=== PATIENT | female | born 1970 | race Caucasian/White ===

== ENCOUNTER 2017-06-17 13:40 | Observation (INO) | payer SELFPAY ==
--- NOTE | 2017-06-17 13:43 | ED Physician Documentation ---
Overdose - HISTORIAN Historian: patient - HPI Stated Complaint: overdose of olanzapine 5 mg tab (unknow amount) Chief Complaint: Overdose Onset: hours ( states he thinks this happned after kid drop off and she stopped responding to him at 10 am ) Duration: sudden onset Intent: accidental (He is not sure why she took extra - he is not sure how many were in the bottle. Meds were filled 30 tabs on 04.08.2017). denies: suicide Situational Problems: No Related To: spouse Further Comments: yes ( states they just returned from vacation and she was not needing meds on vacation and once returning at times she has taken too many due to increased stress of return . He states she has anxiety no sucicial attempt) - Associated Symptoms Symptoms: other (anxiety ) Suicidal: denies: suicidal thoughts Ingestion: accidental Mechanism: overdose - ROS CONST: none - PAST HX Psychiatric problems: other (anxiety ) Lung, Cardiac, DM: other (none ) Surgical History: no surgical history Immunizations: UTD Allergies/Adverse Reactions: Allergies Allergy/AdvReac Type Severity Reaction Status Date / Time sulfamethoxazole Allergy hives Unverified 05/25/14 10:45 [From Bactrim] trimethoprim [From Bactrim] Allergy hives Unverified 05/25/14 10:45 Home Medications: Ambulatory Orders Medication Instructions Recorded Olanzapine [Olanzapine] 5 mg PO DAILY 06/17/17 - Social HX Smoking History: non-smoker Marital Status: Drug Use: none - Family HX Family HX: other (none ) - VITAL SIGNS Vital Signs: Vital Signs Temp Pulse Resp BP Pulse Ox 98 F 62 18 86/60 98 06/17/17 13:40 06/17/17 13:40 06/17/17 13:40 06/17/17 13:40 06/17/17 13:40 - REVIEWED ASSESSMENTS Nursing Assessment Reviewed: Yes Vitals Reviewed: Yes Progress - Progress Progress: 1440: resting in bed. 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 Denies any pain. Easily re settled . Resting after DG 1600: Notified Dr Breann Crain of medication ingestion and remaining refills on prescription. Janey LUQUE took the call and states she will leave the Dr hale message. DG 1615: resting quietly in bed. DG 1655: continues to rest quietly in the room. Family in waiting room DG ED Results Lab/Radiology - Lab Results Lab Results: Lab Results 06/17/17 06/17/17 06/17/17 13:50 13:50 13:50 WBC 5.40 K/ul K/ul (4.00-12.00) RBC 4.35 M/ul M/ul (3.90-5.20) Hgb 13.1 g/dL g/dL (12.0-16.0) Hct 40.4 % % (34.5-46.5) MCV 92.9 fl fl (80.0-100.0) MCH 30.1 pg pg (28.0-34.0) MCHC 32.4 g/dL g/dL (30.0-36.0) RDW 12.4 % % (11.3-14.3) Plt Count 246 K/mm3 K/mm3 (130-400) Neut % (Auto) 80.3 % H % (39.0-79.0) Lymph % (Auto) 11.1 % L % (16.0-50.0) Adams % (Auto) 5.8 % % (0.0-11.0) Eos % (Auto) 0.7 % % (0.0-6.8) Baso % (Auto) 0.8 (0.0-1.5) Neut # (Auto) 4.4 # k/uL # k/uL (1.4-7.7) Lymph # (Auto) 0.6 # k/uL # k/uL (0.6-4.0) Adams # (Auto) 0.3 # k/uL # k/uL (0.0-0.9) Eos # (Auto) 0.0 # k/uL # k/uL (0.0-0.6) Baso # (Auto) 0.0 # k/uL # k/uL (0.0-0.5) Reactive Lymphs % 1.2 % % (0.0-5.0) Reactive Lymphs # 0.1 # k/uL # k/uL (0.0-0.8) Sodium 138 mmol/L mmol/L (136-145) Potassium 3.9 mmol/L mmol/L (3.5-5.1) Chloride 99 mmol/L mmol/L (98-107) Carbon Dioxide 29 mmol/L mmol/L (22-30) BUN 8 mg/dL mg/dL (7-17) Creatinine 0.60 mg/dL mg/dL (0.52-1.04) Estimated Creat Clear 179 Est GFR ( Amer) > 60 (60 - ) Est GFR (Non-Af Amer) > 60 (60 - ) Glucose 129 mg/dL H mg/dL (74-106) Calcium 8.9 mg/dL mg/dL (8.4-10.2) Total Bilirubin 0.9 mg/dL mg/dL (0.2-1.3) AST 29 U/L U/L (15-46) ALT 38 U/L U/L (13-69) Alkaline Phosphatase 67 U/L U/L (38-126) Creatine Kinase 77 U/L U/L (30-135) Total Protein 7.4 g/dL g/dL (6.3-8.2) Albumin 4.3 g/dL g/dL (3.5-5.0) Serum HCG, Qual Negative (NEGATIVE) Acetaminophen < 10.0 ug/mL L ug/mL (10-30) Ethyl Alcohol < 10.0 mg/dL mg/dL (0.0-10.0) - Orders Orders: ED Orders Category Date Time Status Remove IV/Saline Lock 1T Care 06/17/17 13:45 Completed ACETAMINOPHEN LEVEL Routine Lab 06/17/17 13:50 Completed ALCOHOL MEDICAL USE ONLY Routine Lab 06/17/17 13:50 Completed BENZODIAZEPINES, QUANT, URINE Stat Lab 06/17/17 13:50 Received CBC/PLATELET/DIFF Routine Lab 06/17/17 13:50 Completed CMP Routine Lab 06/17/17 13:50 Completed CREATINE KINASE Routine Lab 06/17/17 13:50 Completed DRUG SCREEN URINE MEDICAL ONLY Routine Lab 06/17/17 13:50 Ordered SALICYLATE LEVEL Routine Lab 06/17/17 13:50 Received SERUM HCG Routine Lab 06/17/17 13:50 Completed 0.9 % Sodium Chloride [Normal Saline] 1,000 ml Med 06/17/17 13:49 Discontinued IV Q1H EKG WITH COMPARISON Stat Ther 06/17/17 Ordered Transfer Routine Transfer 06/17/17 Ordered Overdose Physical Exam - Physical Exam General Appearance: alert, mild distress ENT: pharynx nml Eyes: PERRL Mental Status: hostile, non-communicative Suicide Attempts: denies Orientation: cannot determine Cranial Nerves: other (she does follow commands but her eyes are closed and she is not responding verbally ) Sensory, Motor: other (she was sitting in wheelchair and did move to the bed ) Neck: normal inspection Respiratory: no resp distress, chest non-tender, breath sounds normal CVS: reg rate & rhythm, heart sounds normal, equal pulses, no murmur Abdomen: non-tender Skin: warm/dry, normal color Extremities: non-tender, normal range of motion, no evidence of injury, no edema Discharge Clincal Impression: Overdose Qualifiers: Encounter type: initial encounter Injury intent: accidental or unintentional Qualified Code(s): T50.901A - Poisoning by unspecified drugs, medicaments and biological substances, accidental (unintentional), initial encounter Comments: Discussed with spouse will admit for observation over night due to half life of medication Condition: Stable Disposition: 09 ADMITTED INPATIENT Decision to Admit: [id number] Date of Decison to Admit: 06/17/17 Decision Time: 17:05
[2017-06-17] MEDS ORDERED: 0.9 % SODIUM CHLORIDE 1,000 ML IV ONE (13:49)
[2017-06-17 13:59] LABS: BASOPHILS % 0.8 (0.0-1.5); EOSINOPHILS % 0.7 % (0.0-6.8); MEAN CORPUSCULAR HEMOGLOBIN 30.1 pg (28.0-34.0); MEAN CORPUSCULAR VOLUME 92.9 fl (80.0-100.0); MONOCYTES % 5.8 % (0.0-11.0); NEUTROPHILS # 4.4 # k/uL (1.4-7.7)
[2017-06-17 14:23] LABS: eGFR (African) > 60; eGFR (Non-African) > 60
[2017-06-17 17:34] LABS: CANNABINOIDS NEGATIVE ng/mL (< 50); METHYLENEDIOXYMETHAMPHETAMINE NEGATIVE ng/mL (<500)
[2017-06-17 17:41] LABS: APPEARANCE,URINE CLEAR (CLEAR); COLOR,URINE YELLOW (YELLOW); OCCULT BLOOD,URINE NEGATIVE (NEGATIVE); PH URINE 7.5 (5.0 - 8.0); UROBILINOGEN URINE 0.2 Eu (0.2-1.0)
[2017-06-17 18:27] VITALS: BMI 22.6
[2017-06-17] MEDS: 0.9 % SODIUM CHLORIDE 1,000 ML IV SCH (19:24)
[2017-06-18] MEDS: 0.9 % SODIUM CHLORIDE 1,000 ML IV SCH ×2 (04:47→13:45)
--- NOTE | 2017-06-18 16:22 | Discharge Summary ---
Discharge Summary - Discharge Sumary Additional Instructions: Keep the appointment with your psychiatrist tomorrow. Do not take any olanzapine tonight or tomorrow. Return to the ER with unusual behavior. Condition at Discharge: Stable (drowsy) Home Medications: Ambulatory Orders Medication Instructions Recorded Olanzapine [Olanzapine] 5 mg PO DAILY 06/17/17 Consultations this Visit: None Procedures this Visit: None Allergies/Adverse Reactions: Allergies Allergy/AdvReac Type Severity Reaction Status Date / Time sulfamethoxazole Allergy hives Unverified 05/25/14 10:45 [From Bactrim] trimethoprim [From Bactrim] Allergy hives Unverified 05/25/14 10:45 Patient Problems: Current Active Problems Problem Status Onset Overdose Acute Discharge Summary: Pt admitted to observation because half life of olanzapine is 30 hours. Estimated ingestion [id number] yesterday. She is drowsy, appropriate, has eaten twice. and mother at bedside.
[2017-06-18 18:03] VITALS: BP 127/81
== END 2017-06-18 17:55 | disposition home or self-care (01) ==
LOC: ED 13:40 → SOUTH 17:10
PROVIDERS: ADMIT Nurse Practitioner Family; ATTEND Nurse Practitioner Family
DX: T50.901A Poisoning by unspecified drugs, medicaments and biological substances, accidental (unintentional), initial encounter (principal); X58.XXXA Exposure to other specified factors, initial encounter; Y92.9 Unspecified place or not applicable; Y93.9 Activity, unspecified
CPT/HCPCS: 80053; 80320; 80377; 81002; 82550; 84703; 85025; 96365; 96366; 99217; 99284; G0378; G0480; G0481; J7030; S1016